=== PATIENT | female | born 2005 | race African-American/Black ===

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

== ENCOUNTER 2024-09-26 11:42 | Emergency (ER) | payer OTHER, SELFPAY ==
[2024-09-26 11:52] VITALS: BP 116/65; PULSE 65; RESP 18; TEMP 37.1; O2SAT 100
--- NOTE | 2024-09-26 12:06 | ED.ABDPAIN ---
HPI - Abdominal Pain General Chief Complaint: Abdominal Pain Stated Complaint: Headache/Abdominal Pain Related Data Home Medications ?Medication ?Instructions ?Recorded ?Confirmed ?Last Taken ?Type No Home Medications 02/08/22 05/23/23 Unknown History Allergies Allergy/AdvReac Type Severity Reaction Status Date / Time amoxicillin Allergy Mild Rash Verified 09/26/24 11:56 Penicillins Allergy Unknown RASH Verified 09/26/24 11:56 PMF Past Medical History Medical History Seasonal allergies URI, acute Family History Family History Mother Diabetes mellitus Asthma Grandparent Diabetes mellitus Lung cancer Social History Social History (Reviewed 03/07/23 @ 15: by Aidna Machado APRN) Smoking status: Never smoker Alcohol intake: never Substance use: never Substance use type: does not use Living arrangements: with family Occupation/Education: student Gender identity (if verbalized by the patient): Female Spiritual care concerns: No Course Vital Signs Vital signs: Vital Signs Temperature 98.7 F 09/26/24 11:52 Pulse Rate 65 09/26/24 11:52 Respiratory Rate 18 09/26/24 11:52 Blood Pressure 116/65 09/26/24 11:52 Pulse Oximetry 100 09/26/24 11:52 Oxygen Delivery Room Air 09/26/24 11:52 Temperature 98.7 F 09/26/24 11:52 Pulse Rate 65 09/26/24 11:52 Respiratory Rate 18 09/26/24 11:52 Blood Pressure 116/65 09/26/24 11:52 Pulse Oximetry 100 09/26/24 11:52 Oxygen Delivery Room Air 09/26/24 11:52 Discharge Plan Discharge Patient Language: Bengali Prescriptions: No Action No Home Medications Follow-up/Referrals: Kitty,ROMI Angel [Primary Care Provider] -
--- NOTE | 2024-09-26 12:14 | ED.EYEPROB ---
HPI - Eye Problem General Chief complaint: Abdominal Pain Stated complaint: Headache/Abdominal Pain Time Seen by Provider: 09/26/24 12:14 Source: patient and RN notes reviewed Mode of arrival: ambulatory Limitations: no limitations History of Present Illness HPI Narrative: 19-year-old female presents with multiple complaints. She reports she has a stye on her left lower eyelid for 1 day, she had been dealing with 1 on the upper lid that is resolving. She has been using tea bags. She denies drainage from the eye. She also reports yesterday she had a headache, stomach ache and nausea. Reports 1 episode of diarrhea. She denies any vomiting. She denies fever, body aches, chills, sweats. She denies abdominal pain. She reports those symptoms have resolved. She reports mild runny and stuffy nose for 2 days. She has not taken any medications for any of the symptoms. MD chief complaint: other (bump) Related Data Home Medications ?Medication ?Instructions ?Recorded ?Confirmed ?Last Taken ?Type No Home Medications 02/08/22 05/23/23 Unknown History Allergies Allergy/AdvReac Type Severity Reaction Status Date / Time amoxicillin Allergy Mild Rash Verified 09/26/24 12:15 Penicillins Allergy Unknown RASH Verified 09/26/24 12:15 Review of Systems Review of Systems: CONSTITUTIONAL: Denies malaise, chills, sweats, or fever. EYES: Denies visual changes, redness, or discharge. Reports a tender bump on the lower eyelid ENT: Reports mild rhinorrhea, congestion. Denies sinus pain, otalgia or sore throat. CARDIOVASCULAR: Denies chest pain, palpitations, or edema. RESPIRATORY: Denies cough or dyspnea. GASTROINTESTINAL: Denies abdominal pain, vomiting. Reports diarrhea, nausea yesterday GENITOURINARY: Denies dysuria, frequency, urgency or hematuria. SKIN: Denies rash or itching. MUSCULOSKELETAL: Denies myalgia. NEUROLOGIC: Denies numbness, weakness. Reports headache. All systems reviewed & are unremarkable except as noted in HPI and below PMFSH Past Medical History Medical History Seasonal allergies URI, acute Family History Family History Mother Diabetes mellitus Asthma Grandparent Diabetes mellitus Lung cancer Social History Social History Smoking status: Never smoker Alcohol intake: never Substance use: never Substance use type: does not use Living arrangements: with family Occupation/Education: student Gender identity (if verbalized by the patient): Female Spiritual care concerns: No Comments At time of signature, agree with nursing past medical, surgical, social and family history. There is no relevant family history pertinent to the presenting complaint Exam Narrative: GENERAL: Well-appearing, well-nourished, and in no acute distress. HEAD: Normocephalic, atraumatic. EYES: PERRLA, sclera clear, and EOMI. No nystagmus. Bilateral conjunctivae injected. Upper and lower eyelid unremarkable, no periorbital edema noted ENT: Nares clear, turbinates pink, no rhinorrhea or epistaxis. Mucous membranes moist. TM pearly latif with sharp light reflex bilaterally; no tragal tenderness. NECK: Supple. CHEST: No respiratory distress. Speaks in full sentences. HEART: Regular rate and rhythm. SKIN: Warm, dry, no visible rash. NEURO: Alert and oriented x3. PSYCH: Normal mood and affect Course Course Emergency Course: Patient is aware of diagnosis, understands and agrees to treatment plan. Anticipatory guidance given. Patient agrees to follow-up as directed and is aware of reasons to seek care at the emergency department. Portions of this record may have been created with voice recognition software Level of Care: Express Care Visit Vital Signs Vital signs: Vital Signs Temperature 98.7 F 09/26/24 11:52 Pulse Rate 65 09/26/24 11:52 Respiratory Rate 18 09/26/24 11:52 Blood Pressure 116/65 09/26/24 11:52 Pulse Oximetry 100 09/26/24 11:52 Oxygen Delivery Room Air 09/26/24 11:52 Temperature 98.7 F 09/26/24 11:52 Pulse Rate 65 09/26/24 11:52 Respiratory Rate 18 09/26/24 11:52 Blood Pressure 116/65 09/26/24 11:52 Pulse Oximetry 100 09/26/24 11:52 Oxygen Delivery Room Air 09/26/24 11:52 Reviewed. MDM - Eye Problem MDM Narrative Medical decision making narrative: Consideration of the following conditions may be warranted for the presenting problem, they are not final diagnoses: Bacterial conjunctivitis, allergic conjunctivitis, viral conjunctivitis, foreign body, blepharitis, chalazion, hordeolum, corneal abrasion, preseptal cellulitis, orbital cellulitis. No evidence of proptosis, ophthalmoplegia, vision loss, pain with eye movement. Exam findings show no acute concerns or changes; patient is non-toxic appearing and is in no distress. Patient is appropriate for outpatient treatment and follow-up. Critical Care Time Critical Care Time Critical Care Time: No Discharge Plan Discharge Clinical Impression: Hordeolum, Viral illness Patient Disposition: Home Condition: Stable Instructions: Stye (ED), Viral Syndrome (ED) Additional Instructions: Stye: Do not touch or rub your eye. Use a warm washcloth on your eye 4-5 times daily Use eyedrops as directed Practice good handwashing You may take Tylenol or ibuprofen for pain Follow-up with PCP or technical manager if condition is not improving in 2-3days. Go to the emergency room if you have pain behind your eye, pressure behind your eye, difficulty seeing, or other severe symptoms Viral illness: -Take strict precautions to prevent the spread of your virus. Be diligent about covering your cough (even when you are alone) and washing your hands frequently. -You may contagious until you have been symptom and/or fever free for 24 hours without fever reducing medicine -Alternate Ibuprofen and Tylenol for pain and fever relief (per package directions) -Mucinex DM or pseudoephedrine as needed for cold symptoms -Eat bland foods, sip fluids frequently -Drink plenty of fluid - drink fluid with electrolytes such as Gatorade or other oral re-hydration solution. Avoid caffeine, which can make dehydration worse. -Get plenty of rest to help your body heal. -Use a cool mist humidifier for chest and nasal congestion. -Eat RAW honey or use cough drops to ease throat discomfort -Do not smoke or expose children to secondhand smoke -Wash your hands frequently. -Please follow-up with your primary care doctor in the next 1-2 days if your symptoms do not improve. -If you have any worsening of symptoms or any other concerns please go to the ED immediately. -Please take medications as prescribed and continue taking your home medications as usual. Patient Language: Venezuelan Prescriptions: No Action No Home Medications Follow-up/Referrals: Kitty,ROMI Angel [Primary Care Provider] - Time of Disposition: 12:23
== END 2024-09-26 12:37 | disposition home or self-care (01) ==
PROVIDERS: Emergency Provider Nurse Practitioner; PCP Physician Assistant
DX: H00.015 Hordeolum externum left lower eyelid (principal); B34.9 Viral infection, unspecified
CPT/HCPCS: 99213; G0463

== ENCOUNTER 2024-11-16 11:30 | Emergency (ER) | payer OTHER, SELFPAY ==
[2024-11-16 11:43] VITALS: BP 118/67; PULSE 96; RESP 20; TEMP 37.6; O2SAT 100
--- NOTE | 2024-11-16 11:51 | ED_ITS ---
HPI - URI/Sore Throat General Chief Complaint: Upper Respiratory Infection Stated Complaint: sore Throat patient presents to the [facility] with complaints sore throat, mild nasal congestion, headache that began yesterday. Denies any known sick contacts. Denies fever, chills body difficulty swallowing, shortness of breath nausea, v omiting, diarrhea. Related Data Allergies Allergy/AdvReac Type Severity Reaction Status Date / Time amoxicillin Allergy Mild Rash Verified 11/16/24 11:45 Penicillins Allergy Unknown RASH Verified 11/16/24 11:45 Review of Systems Constitutional: Constitutional: Reports as per HPI, Denies chills, Reports fatigue, Denies fever(s) and Denies weakness Eyes: Eyes: Reports no additional eye complaints ENT: Reports as per HPI, Denies vertigo, Denies dizziness, Reports nasal congestion and Reports sore throat Cardiovascular: Cardiovascular: Reports no additional cardiovascular complaints Respiratory: Respiratory: Reports as per HPI, Denies chest congestion, Denies cough, Denies dyspnea and Denies wheezing Gastrointestinal: Gastrointestinal: Reports as per HPI, Denies diarrhea, Denies nausea and Denies vomiting Genitourinary: Genitourinary: Reports no additional female genitourinary complaints Musculoskeletal: Musculoskeletal: Reports as per HPI, Denies back pain and Denies myalgias Integumentary/Breasts: Skin/Breast: Reports as per HPI, Denies erythema and Denies rash Neurologic: Reports as per HPI, Denies vertigo, Denies dizziness, Reports headache(s) and Denies weakness Psychiatric: Psychiatric: Reports no additional psychiatric complaints Endocrine: Endocrine: Reports no additional endocrine complaints Hematologic/Lymphatic: Hematologic/Lymphatic: Reports no additional hematologic/lymphatic complaints Allergic/Immunologic: Allergic/Immunologic: Reports no additional allergic/immunologic complaints [facility] Past Medical History Medical History Seasonal allergies URI, acute Family History Family History Mother Diabetes mellitus Asthma Grandparent Diabetes mellitus Lung cancer Social History Social History Smoking status: Never smoker Alcohol intake: never Substance use: never Substance use type: does not use Living arrangements: with family Occupation/Education: student Gender identity (if verbalized by the patient): Female Spiritual care concerns: No Exam Const: General: healthy appearing and no acute distress Nutritional Appearance: well nourished Orientation/consciousness: patient oriented x3 Limitations: no limitations HENMT: Head: normal to inspection Ears: external ears normal and TM's normal bilaterally Face/Nose/Sinus: Normal external nose present and Normal nares present Face and sinus: normal facial exam and sinuses nontender Mouth: Yes Normal oral and palatal mucosa present, Yes lip normal and Yes moist mucous membranes Throat: posterior oropharynx abnormal ( Moderate edema, erythema, and exudate- bilateral ) Neck: Neck: normal visual inspection and lymphadenopathy ( bilateral anterior cervical) Resp: Effort & Inspection: normal respiratory effort Auscultation: clear to auscultation bilaterally Cardio: Rate: regular rate Rhythm: regular rhythm Skin: General skin exam: normal color Rashes: no rashes Wounds: no wounds Neuro: General: patient oriented x3 Speech: normal speech Gait exam (Neuro): Normal gait present Psych: Mental Status: mental status grossly normal Affect: normal affect Attitude: cooperative Course Course Level of Care: Express Care Visit Vital Signs Vital signs: Vital Signs Temperature 99.7 F H 11/16/24 11:43 Pulse Rate 96 11/16/24 11:43 Respiratory Rate 20 11/16/24 11:43 Blood Pressure 118/67 11/16/24 11:43 Pulse Oximetry 100 11/16/24 11:43 Oxygen Delivery Room Air 11/16/24 11:43 Temperature 99.7 F H 11/16/24 11:43 Pulse Rate 96 11/16/24 11:43 Respiratory Rate 20 11/16/24 11:43 Blood Pressure 118/67 11/16/24 11:43 Pulse Oximetry 100 11/16/24 11:43 Oxygen Delivery Room Air 11/16/24 11:43 MDM - URI/Sore Throat MDM Narrative Medical decision making narrative: strep positive. The patient was evaluated by myself in the express care. History is obtained from patient who is an independent historian and physical exam was performed. Available medical records were reviewed at this time. Exam findings show no acute concerns or changes; patient is non-toxic appearing and is in no distress. Patient is appropriate for outpatient treatment and follow-up. I have evaluated and discussed social determinants of health with the patient that could potentially impact subsequent diagnosis and treatment plans. Differential diagnosis and treatment plan were discussed with the patient. Patient agrees with discussion and after shared medical decision making agrees with plan of care. All questions were answered to the patient's satisfaction. Differential Diagnosis Differential diagnosis: Likely upper respiratory infection, croup, otitis media, sinusitis, influenza and pharyngitis Medical Records Attestation: I reviewed the patient's medical records. Lab Data Attestation: I reviewed the patient's lab results. Discharge Plan Discharge Clinical Impression: Strep sore throat Patient Disposition: Home Condition: Stable Instructions: Antibiotic Form, Strep Throat (ED) Additional Instructions: After 24 hours on antibiotics throw tooth brush away and start using a new one. Do not share drinks. Take Motrin alternating with Tylenol for pain and fever alternating every 4 hours. Increase fluids, avoid caffeine. Follow up with Primary provider if not getting better this week Patient Language: Hungarian Prescriptions: New azithromycin 250 mg tablet See Rx Instructions .ROUTE .COMPLEX Qty: 6 0RF Rx Instructions: For 250 mg dose pack: take 500 mg today (day 1), then 250 mg for 4 days (days 2-5) Follow-up/Referrals: Kitty,ROMI Angel [Primary Care Provider, Unknown] Time of Disposition: 11:53
[2024-11-16 11:54] LABS: EDSTREPNEGPOS1 Positive (Negative)
[2024-11-16 11:59] LABS: EDCOVIDSCREEN Negative (Negative); EDINFLUASCREEN Negative (Negative); EDINFLUBSCREEN Negative (Negative)
== END 2024-11-16 11:58 | disposition home or self-care (01) ==
PROVIDERS: Emergency Provider Nurse Practitioner Family; PCP Physician Assistant
DX: J02.0 Streptococcal pharyngitis (principal); Z20.822 Contact with and (suspected) exposure to COVID-19
CPT/HCPCS: 87426; 87804; 87880; 99213; G0463

== ENCOUNTER 2024-11-27 09:00 | Outpatient (RCR) | payer OTHER, SELFPAY ==
--- NOTE | 2024-10-28 12:02 | OPREHPOC ---
Outpatient Therapy Plan of Care This is a Multidisciplinary Plan of Care that may contain components documented by all disciplines (PT, OT, and ST.) PT Problem 1 PT Problem #1 Knowledge Deficit PT Goal 1 Goal / Goal Update *independent with HEP Target Visit 8 PT Problem 2 PT Problem #2 Pain PT Goal 1 Goal / Goal Update 1* pt report pain rating at worst of 1/10 2* decrease spasms over gastrocs- with palpation minimal spasms Target Visit 8 PT Problem 3 PT Problem #3 Impaired Strength PT Goal 1 Goal / Goal Update * increase strength of R ankle and foot- able to perform 20 standing PF bilateral with good stability of ankle/LE Target Visit 8 PT Problem 4 PT Problem #4 Impaired Strength PT Goal 1 Goal / Goal Update * pt able to tolerate running on the treadmill x 5 minutes Target Visit 8
--- NOTE | 2024-10-28 12:02 | PTOPEVAL1 ---
Assessment and note entered by Neyda Bradley, PT Evaluation Information Assessment Status Evaluation ICD-10 Condition Codes (PT) Pain in right ankle and joints of right foot M25. 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 She has been released by the surgeon and did not have any PT treatments. LE functional scale rating of 8% limitation in activity level. Reports that she continues to have pain and tightness over toes, foot and ankle and is not able to tolerate running. She is using an ankle brace PRN for pain. 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 With the evaluation; she has poor standing position of knees and ankles/feet, decreased strength of ankle with standing PF and spasms and tenderness over R mid-lateral gastroc and distal tendon. Skilled PT services are indicated for modalities to decrease pain and spasms, therapeutic exercises to increase ankle strength and education for HEP and posture correction. Plan of Care Interventions Hot Pack/Cold Pack,Manual Therapy,Neuro Re- education,Patient/Caregiver Education,Therapeutic Activities,Therapeutic Exercise,Ultrasound,Other Other Interventions dry needling- discussed and she agreed to it, taping PT Services Indicated Yes Treatment Frequency and 1-2x/wk for 8 visits Duration These treatments will address the objective and functional deficits as defined above. The patient will be advanced safely and appropriately in order for the patient to progress towards his/her prior level of function. Additional exercises will be introduced and as well as a comprehensive home exercise program upon discharge, if needed, ?to ensure carryover of functional gains achieved in the clinic. This treatment plan has been reviewed and agreement upon by the patient.
--- NOTE | 2024-11-18 08:27 | PCPTNOTE ---
Cancelled, strep/ill. per front office. AKS
--- NOTE | 2024-12-02 09:40 | PCPTNOTE ---
No call no show, reason unknown. AKShahram
--- NOTE | 2024-12-09 09:20 | PCPTNOTE ---
NC/NS. Called pt and left to remind her of todays visit. Next visit --06-06 @ 9:00. Asked to cancel if she no longer needs our services. NATHANIEL
--- NOTE | 2024-12-22 10:47 | PCPTNOTE ---
pt did not show for today's reeval appt. Discharge PT.
--- NOTE | 2024-12-22 10:50 | OPREHPOC ---
Outpatient Therapy Plan of Care This is a Multidisciplinary Plan of Care that may contain components documented by all disciplines (PT, OT, and ST.) PT Problem 1 PT Problem #1 Knowledge Deficit PT Goal 1 Goal / Goal Update *independent with HEP 12-22-24 d/c due to pt not attending goals not addressed Target Visit 8 PT Problem 2 PT Problem #2 Pain PT Goal 1 Goal / Goal Update 1* pt report pain rating at worst of 02/21 2* decrease spasms over gastrocs- with palpation minimal spasms 12-22-24 d/c due to pt not attending goals not addressed Target Visit 8 PT Problem 3 PT Problem #3 Impaired Strength PT Goal 1 Goal / Goal Update * increase strength of R ankle and foot- able to perform 20 standing PF bilateral with good stability of ankle/LE 12-22-24 d/c due to pt not attending goals not addressed Target Visit 8 PT Problem 4 PT Problem #4 Impaired Strength PT Goal 1 Goal / Goal Update * pt able to tolerate running on the treadmill x 5 minutes 12-22-24 d/c due to pt not attending goals not addressed Target Visit 8
--- NOTE | 2024-12-22 10:51 | PTOPDC ---
Assessment and note entered by Neyda Bradley, PT Assessment Status Discharge - Pt Not Present ICD-10 Condition Codes (PT) Pain in right ankle and joints of right foot M25. 571 Other ICD-10 Condition Codes ( R ankle fracture Z87.81 PT) Onset Jun 19 2024 Subjective Information pt did not show for today's reevaluation appt. Assessment PT Clinical Summary Nancy has received 3 PT sessions. She did not show for 3 appointments and called/ canceled 1 appointment. Discharge PT due to not attending. The goals were not addressed. Plan of Care PT Services Indicated No
== END 2024-12-22 14:02 | disposition home or self-care (01) ==
LOC: ANHPT 09:00
PROVIDERS: PCP Physician Assistant; Visit Provider Physician Assistant
DX: Z87.81 Personal history of (healed) traumatic fracture (principal)
CPT/HCPCS: 97110; 97112; 97140; 97161; 97530